=== PATIENT | male | born 1940 | race Caucasian/White ===

== ENCOUNTER 2016-10-25 18:45 | Emergency (ER) | payer OTHER, MEDICARE ==
[~2016-10-25] VITALS: Ht 175.3 cm; Wt 76.0 kg
[~2016-10-25 18:45] MED LIST: ASPI81 PO; COMBAER INH; COZA100T PO; EYECAPS; LASI20TA PO; METO50TA OR; NITR0.4S SL; NORV2.5T11 PO; OMEP20TA PO; SIMV80TA PO; TAB-TAB PO; [UNRECOGNIZED DRUG - CODE] OP
[2016-10-25 18:48] VITALS: BP 149/89; PULSE 86; RESP 28; TEMP 97.4; O2SAT 96
[2016-10-25 20:08] VITALS: BP 175/87
--- NOTE | 2016-10-25 20:12 | PD ---
HPI Chief Complaint: Chest Pain Time Seen by Provider: 19:58 Travel History International Travel<30 days: No Contact w/Intl Traveler<30days: No Traveled to known affect area: No History of Present Illness HPI 76-year-old male complains of chest pain. Patient states the pain started yesterday. Patient states the pain is aching pain localized to left chest. Patient denies any pain radiation. Patient denies palpitation nausea or diaphoresis. Patient denies any coughing congestion fever chills. Patient states that the pain is not associate with exertion. Patient states that the pain started yesterday and has been persistent since then. Patient states that the pain is better today. Patient takes nitroglycerin intermittently without relief of the pain. Patient has history of coronary disease status post cardiac catheter and angioplasty 6 years ago. Patient denies any history of [place]. Patient has history hypertension, dyslipidemia. Patient denies history diabetes. Patient is a nonsmoker. Patient has history of GERD. Patient also has history of chronic low back pain that is not new. Patient denies any recent injury. Patient was taking oxycodone and hydrocodone for back pain in the past. Patient takes aspirin 81 mg daily including today. PFSH Past Medical History Asthma: Yes Cardiac Catheterization: Yes Cardiovascular Problems: Yes High Cholesterol: Yes COPD: Yes Diverticulitis: Yes Hypertension: Yes Respiratory: Yes (COPD/ASTHMA) Past Surgical History Abdominal Surgery: Yes (S/P PERITONITIS) Appendectomy: Yes Social History Alcohol Use: No Tobacco Use: No Substance Use: No Allergies-Medications (Allergen,Severity, Reaction): Coded Allergies: No Known Allergies (Verified , 10/25/16) Reported Meds & Prescriptions Reported Meds & Active Scripts Active Reported [Eyecaps] Nitrostat (Nitroglycerin) 0.4 Mg Sub 0.4 Mg SL DIRECTED Cozaar (Losartan Potassium) 100 Mg Tab 100 Mg PO DAILY Hypromellose 4300CPS (Hypromellose (Bulk)) 4,300 Cps Pow 4,300 Cps OP TIDPRN Lasix (Furosemide) 20 Mg Tab 20 Mg PO DAILY Norvasc (Amlodipine Besylate) 2.5 Mg Tab 2.5 Mg PO DAILY Combivent (Albuterol/Ipratropium) 14.7 Gm Aer 2 Puff INH DIRECTED PRN Multivitamin (Multivitamins) 1 Tab Tab 1 Tab PO DAILY Aspirin 81 Mg Tab 81 Mg PO DAILY Simvastatin 80 Mg Tab 20 Mg PO HS Metoprolol Tartrate 50 Mg Tab 25 Mg OR BID Omeprazole 20 Mg Tab 20 Mg PO BID Review of Systems General / Constitutional: No: Fever Eyes: No: Visual changes HENT: No: Headaches Cardiovascular: Positive: Chest Pain or Discomfort Respiratory: No: Shortness of Breath Gastrointestinal: No: Abdominal Pain Genitourinary: No: Dysuria Musculoskeletal: No: Pain Skin: No Rash Neurologic: No: Weakness Psychiatric: No: Depression Endocrine: No: Polydipsia Hematologic/Lymphatic: No: Easy Bruising Physical Exam Narrative GENERAL: Well-nourished, well-developed patient. SKIN: Focused skin assessment warm/dry. HEAD: Normocephalic. EYES: No scleral icterus. No injection or drainage. NECK: Supple, trachea midline. No JVD or lymphadenopathy. CARDIOVASCULAR: Regular rate and rhythm without murmurs, gallops, or rubs. RESPIRATORY: Breath sounds equal bilaterally. No accessory muscle use. GASTROINTESTINAL: Abdomen soft, non-tender, nondistended. MUSCULOSKELETAL: No cyanosis, or edema. BACK: Nontender without obvious deformity. No CVA tenderness. Neurologic exam normal. Data Data Last Documented VS Vital Signs Date Time Temp Pulse Resp B/P Pulse Ox O2 Delivery O2 Flow Rate FiO2 10/25/16 20:35 67 18 140/88 96 Room Air 10/25/16 18:48 97.4 Orders Electrocardiogram (10/25/16 ) Complete Blood Count With Diff (10/25/16 20:06) Comprehensive Metabolic Panel (10/25/16 20:06) Creatine Kinase (Cpk) (10/25/16 20:06) Troponin I (10/25/16 20:06) Prothrombin Time / Inr (Pt) (10/25/16 20:06) Act Partial Throm Time (Ptt) (10/25/16 20:06) Chest, Single Ap (10/25/16 20:06) Iv Access Insert/Monitor (10/25/16 20:06) Ecg Monitoring (10/25/16 20:06) Oximetry (10/25/16 20:06) Acetamin-Hydrocod 325-5 Mg (Ledbetter 5-325 (10/25/16 20:15) Aspirin Chew (Aspirin Chew) (10/25/16 20:15) Morphine Inj (Morphine Inj) (10/25/16 20:30) Ondansetron Inj (Zofran Inj) (10/25/16 20:30) Morphine Inj (Morphine Inj) (10/25/16 20:45) Labs Laboratory Tests Test 10/25/16 20:25 White Blood Count 10.0 TH/MM3 Red Blood Count 3.88 MIL/MM3 Hemoglobin 11.7 GM/DL Hematocrit 34.4 % Mean Corpuscular Volume 88.6 FL Mean Corpuscular Hemoglobin 30.1 PG Mean Corpuscular Hemoglobin 33.9 % Concent Red Cell Distribution Width 17.3 % Platelet Count 338 TH/MM3 Mean Platelet Volume 9.3 FL Neutrophils (%) (Auto) 60.5 % Lymphocytes (%) (Auto) 23.2 % Monocytes (%) (Auto) 14.8 % Eosinophils (%) (Auto) 1.3 % Basophils (%) (Auto) 0.2 % Neutrophils # (Auto) 6.0 TH/MM3 Lymphocytes # (Auto) 2.3 TH/MM3 Monocytes # (Auto) 1.5 TH/MM3 Eosinophils # (Auto) 0.1 TH/MM3 Basophils # (Auto) 0.0 TH/MM3 CBC Comment AUTO DIFF Differential Comment AUTO DIFF CONFIRMED Platelet Estimate NORMAL Platelet Morphology Comment NORMAL Ovalocytes 1+ Acanthocytes OCC Keratocytes OCC Prothrombin Time 9.9 SEC Prothromb Time International 0.9 RATIO Ratio Activated Partial 24.9 SEC Thromboplast Time Sodium Level 128 MEQ/L Potassium Level 4.1 MEQ/L Chloride Level 93 MEQ/L Carbon Dioxide Level 24.5 MEQ/L Anion Gap 11 MEQ/L Blood Urea Nitrogen 9 MG/DL Creatinine 0.88 MG/DL Estimat Glomerular Filtration 84 ML/MIN Rate Random Glucose 90 MG/DL Calcium Level 8.7 MG/DL Total Bilirubin 0.3 MG/DL Aspartate Amino Transf 25 U/L (AST/SGOT) Alanine Aminotransferase 28 U/L (ALT/SGPT) Alkaline Phosphatase 156 U/L Total Creatine Kinase 54 U/L Troponin I LESS THAN 0.02 NG/ML Total Protein 6.8 GM/DL Albumin 3.5 GM/DL [facility] Medical Decision Making Medical Screen Exam Complete: Yes Emergency Medical Condition: Yes Interpretation(s) 22:23 PM. EKG shows sinus rhythm with bigeminy. Nonspecific ST-T wave change. Last Impressions Chest X-Ray 10/25/162005 Signed Impressions: Service Date/Time: Tuesday, October 25, 2016 20:07 - CONCLUSION: 1. Basilar atelectasis or scarring lungs. No effusion. Nabeel Ponce MD 22:23 PM. CBC within normal limit. Sodium 128. Cardiac enzymes are normal. Differential Diagnosis Differential diagnosis including angina, [place], PE, pneumothorax. Narrative Course 76-year-old male with chest pain. History of CAD status post angioplasty 6 years ago. Patient took aspirin 81 mg by mouth today. Patient complains of chronic low back pain. Lortab 5/325, one tablet by mouth given. Aspirin 81 g by mouth given. Morphine 2 mg IV given. Zofran 4 mg IV given. Repeated morphine 2 mg IV. Patient was offer admission to the chest pain center. Patient refuses admission patient wants to go home. Diagnosis Primary Impression: Chest pain Qualified Code: R07.9 - Chest pain, unspecified type Additional Impression: Back pain Qualified Code: M54.5 - Chronic bilateral low back pain without sciatica Patient Instructions: General Instructions Additional Instructions: Take medications as needed for back pain. 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 Return if increasing chest pain or shortness of breath. Med/Other Pt SpecificInfo: Prescription(s) given Scripts Hydrocodone-Acetaminophen (Ledbetter)5-325 mg Tab1 Tab PO Q6H PRN (PAIN) #20 TAB Ref 0 Prov:Christiano Hernandez MD 10/25/16 Disposition: 01 DISCHARGE HOME Condition: Stable Christiano Hernandez MD Oct 25, 2016 20:12
[2016-10-25] MEDS ORDERED: ASPIRIN 81 MG CHEW TAB CHEW ONE (20:15)
[2016-10-25] MEDS ORDERED: ACETAMINOPHEN/HYDROcodone 325 MG/5 MG TAB PO ONE (20:15)
[2016-10-25 20:29] VITALS: O2SAT 97
[2016-10-25] MEDS ORDERED: ONDANSETRON HCL 4 MG/2 ML VIAL IV PUSH ONE (20:30)
[2016-10-25] MEDS ORDERED: MORPHINE SULFATE 4 MG/ML INJ IV PUSH ONE ×2 (20:30→20:45)
[2016-10-25 20:35] VITALS: BP 140/88; PULSE 67; RESP 18; O2SAT 96
[2016-10-25 21:09] LABS: BASOPHIL % 0.2 % (0.0-2.0); EOSINOPHIL # 0.1 TH/MM3 (0-0.4); EOSINOPHIL % 1.3 % (0.0-4.0); HEMATOCRIT 34.4 % (39.0-51.0); LYMPH % 23.2 % (9.0-44.0); LYMPHOCYTE # 2.3 TH/MM3 (1.0-4.8); MEAN CELL VOLUME 88.6 FL (80.0-100.0); MEAN CORPUSCULAR HEMOGLOBIN 30.1 PG (27.0-34.0); MEAN CORPUSCULAR HGB CONC 33.9 % (32.0-36.0); MONO % 14.8 % (0.0-8.0); NEUT % 60.5 % (16.0-70.0); PLATELET COUNT 338 TH/MM3 (150-450); RED BLOOD COUNT 3.88 MIL/MM3 (4.50-5.90); RED CELL DISTRIBUTION WIDTH 17.3 % (11.6-17.2)
[2016-10-25 21:21] LABS: HEMO FLAGS AUTO DIFF
--- NOTE | 2016-10-25 21:23 | RADRPT ---
EXAM DATE/TIME: 10/25/2016 20:07 [facility] COMPARISON: No previous studies available for comparison. INDICATIONS : Chest pain. MEDICAL HISTORY : None. SURGICAL HISTORY : None. ENCOUNTER: Initial ACUITY: 1 day PAIN SCORE: 0/10 LOCATION: Bilateral chest FINDINGS: A single view of the chest demonstrates linear atelectasis or scarring at the lung bases. No effusion . No pneumothorax. Tortuous aorta. CONCLUSION: 1. Basilar atelectasis or scarring lungs. No effusion. Nabeel Ponce MD on October 25, 2016 at 21:20 Board Certified Radiologist. This report was verified electronically.
[2016-10-25 21:35] LABS: APTT (PATIENT) 24.9 SEC (24.3-30.1); INTERNATIONAL NORMALIZED RATIO 0.9 RATIO; PROTHROMBIN TIME - PATIENT 9.9 SEC (9.8-11.6)
[2016-10-25 21:36] LABS: ANION GAP 11 MEQ/L (5-15); AST (GOT) 25 U/L (15-37); BICARBONATE 24.5 MEQ/L (21.0-32.0); BLOOD UREA NITROGEN 9 MG/DL (7-18); CHLORIDE 93 MEQ/L (98-107); GLOMERULAR FILTRATION RATE 84 ML/MIN (>89); POTASSIUM 4.1 MEQ/L (3.5-5.1); SODIUM (NA) 128 MEQ/L (136-145)
[2016-10-25 21:43] LABS: ALKALINE PHOSPHATASE 156 U/L (45-117); ALT (GPT) 28 U/L (12-78); CREATINE KINASE 54 U/L (39-308); TOTAL BILIRUBIN ADULT 0.3 MG/DL (0.2-1.0)
[2016-10-25 21:54] LABS: ACANTHOCYTES OCC (NORMAL); KERATOCYTES OCC (NORMAL); OVALOCYTES 1+ (NORMAL); PLATELET ESTIMATE SMEAR NORMAL (NORMAL); PLATELET MORPHOLOGY NORMAL (NORMAL); SCAN/DIFF AUTO DIFF CONFIRMED
[2016-10-25] MEDS ORDERED: NORC5TAB PO (22:33)
--- NOTE | 2016-10-25 22:59 | EKG ---
Date Performed: 10/25/2016 Time Performed: 19:05:52 PTAGE: 76 years EKG: Sinus rhythm WITH FIRST DEGREE AV BLOCK WITH FREQUENT VENTRICULAR PREMATURE COMPLEXES\BIGEMINY MODERATE INTRAVENT RICULAR CONDUCTION DELAY ABNORMAL ECG PREVIOUS TRACING : 04/09/2012 20.13 Compared to the previous tracing, Bigeminy is now noted DOCTOR: Balwinder Dixon Interpretating Date/Time 10/25/2016 22:59:23
== END 2016-10-25 23:08 | disposition home or self-care (01) ==
LOC: NEPC 18:45
DX: R07.9 Chest pain, unspecified (principal); M54.5 Low back pain; R94.31 Abnormal electrocardiogram [ECG] [EKG]; I10 Essential (primary) hypertension; E78.5 Hyperlipidemia, unspecified; Z79.82 Long term (current) use of aspirin; Z86.79 Personal history of other diseases of the circulatory system; Z87.19 Personal history of other diseases of the digestive system; Z87.39 Personal history of other diseases of the musculoskeletal system and connective tissue; Z87.09 Personal history of other diseases of the respiratory system
CPT/HCPCS: 71010; 80053; 82550; 84484; 85025; 85610; 85730; 93005; 96374; 96375; 99285; J2270; J2405

== ENCOUNTER 2016-10-31 00:07 | Emergency (ER) | payer MEDICARE, OTHER ==
[~2016-10-31] VITALS: Ht 177.8 cm; Wt 75.0 kg
[~2016-10-31 00:07] MED LIST changes: +NORC5TAB PO
[2016-10-31 00:10] VITALS: BP 139/75; PULSE 74; RESP 22; TEMP 97.9; O2SAT 97
[2016-10-31] MEDS ORDERED: MORPHINE SULFATE 4 MG/ML INJ IV PUSH ONE ×2 (00:45→02:00)
[2016-10-31] MEDS ORDERED: MELO-1 PO (01:03)
[2016-10-31] MEDS ORDERED: POLY99.0 EACH EYE (01:03)
[2016-10-31] MEDS ORDERED: IPRASOL INH (01:03)
[2016-10-31] MEDS ORDERED: OMEP20TA PO (01:03)
[2016-10-31] MEDS ORDERED: AMLO2.5T PO (01:03)
[2016-10-31] MEDS ORDERED: TRAM50TA PO (01:03)
[2016-10-31] MEDS ORDERED: LOSA100T PO (01:03)
--- NOTE | 2016-10-31 01:25 | RADRPT ---
EXAM DATE/TIME: 10/31/2016 01:02 [facility] COMPARISON: No previous studies available for comparison. INDICATIONS : Fall. Low back pain. MEDICAL HISTORY : None. SURGICAL HISTORY : None. ENCOUNTER: Initial ACUITY: 1 day PAIN SCORE: 8/10 LOCATION: Bilateral Paraspinal FINDINGS: Two view examination was performed. There is evidence of chronic wedge compression of T11, T12 and L1 . The L2-L5 lumbar vertebral bodies are intact. No spondylolisthesis. There is osteopenia and degener ative changes. Atherosclerotic changes are seen in the aorta. No significant spondylolisthesis.. CONCLUSION: 1. Chronic appearing wedge compression of T11, T12 and L1. 2. Osteopenia and degenerative changes of the lumbar spine. Marlo Chowdary MD on October 31, 2016 at 1:22 Board Certified Radiologist. This report was verified electronically.
--- NOTE | 2016-10-31 01:27 | RADRPT ---
EXAM DATE/TIME: 10/31/2016 01:07 [facility] COMPARISON: No previous studies available for comparison. INDICATIONS : Fall. Left elbow pain. MEDICAL HISTORY : None. SURGICAL HISTORY : None. ENCOUNTER: Initial ACUITY: 1 day PAIN SCORE: 5/10 LOCATION: Left upper extremity FINDINGS: Multiple view examination of the left elbow demonstrates no soft tissue swelling, joint effusion, or fracture. The osseous structures are in normal alignment. Bony mineralization is normal. There is a small amount of subcutaneous emphysema in the soft tissues at the elbow. CONCLUSION: No acute bony fracture or joint dislocation. Mild soft tissue injury at the elbow. Marlo Chowdary MD on October 31, 2016 at 1:24 Board Certified Radiologist. This report was verified electronically.
--- NOTE | 2016-10-31 01:31 | PD ---
HPI Chief Complaint: Fall Time Seen by Provider: 00:28 Travel History International Travel<30 days: No Contact w/Intl Traveler<30days: No Traveled to known affect area: No History of Present Illness HPI 68-year-old male arrives to the ER by EMS. He was walking in his bathroom and fell. He landed on the left elbow. He was unable to get up. He did not lose consciousness. He did not have head trauma. His legs were weak and for that reason he fell. He has had a few similar falls previously. His main complaint is constant severe back pain. He asks if he could have a shot like he did last time for the same pain. He has chronic back pain. PFSH Past Medical History Asthma: Yes Cardiac Catheterization: Yes Cardiovascular Problems: Yes High Cholesterol: Yes COPD: Yes Diverticulitis: Yes Hypertension: Yes Respiratory: Yes (COPD/ASTHMA) Influenza Vaccination: No Past Surgical History Abdominal Surgery: Yes (S/P PERITONITIS) Appendectomy: Yes Family History Family Myocardial Infarction: Yes (BROTHER AND FATHER) Social History Alcohol Use: No Tobacco Use: No Substance Use: No Allergies-Medications (Allergen,Severity, Reaction): Coded Allergies: No Known Allergies (Verified , 10/31/16) Reported Meds & Prescriptions Reported Meds & Active Scripts Active [place] (Hydrocodone-Acetaminophen) 5-325 mg Tab 1 Tab PO Q6H PRN Reported Tramadol (Tramadol HCl) 50 Mg Tab 50 Mg PO Q6H PRN Omeprazole 20 Mg Tab 20 Mg PO BID Meloxicam 15 Mg Tab 15 Mg PO DAILY Losartan (Losartan Potassium) 100 Mg Tab 100 Mg PO DAILY Artificial Tears Opth Drops (Polyvinyl Alcohol) 1.4% Soln 1-2 Drop EACH EYE QID Amlodipine (Amlodipine Besylate) 2.5 Mg Tab 2.5 Mg PO DAILY Duoneb (Ipratropium-Albuterol Neb) 0.5-2.5 Mg/3 Ml Neb 1 Nebule INH Q6HR NEB [Eyecaps] Review of Systems Except as stated in HPI: all other systems reviewed are Neg Physical Exam Narrative GENERAL: 76-year-old male pleasant well-nourished well-developed SKIN: Focused skin assessment warm/dry. HEAD: Atraumatic. Normocephalic. EYES: Pupils equal and round. No scleral icterus. No injection or drainage. ENT: No nasal bleeding or discharge. Mucous membranes pink and moist. NECK: Trachea midline. No JVD. CARDIOVASCULAR: Regular rate and rhythm. No murmur appreciated. RESPIRATORY: No accessory muscle use. Clear to auscultation. Breath sounds equal bilaterally. GASTROINTESTINAL: Abdomen soft, non-tender, nondistended. Hepatic and splenic margins not palpable. MUSCULOSKELETAL: No obvious deformities. No clubbing. No cyanosis. No edema. Minimal ecchymosis about the left elbow. Without significant tenderness. Minimal tenderness about the region of the upper lumbar spine. NEUROLOGICAL: Awake and alert. No obvious cranial nerve deficits. Motor grossly within normal limits. Normal speech. PSYCHIATRIC: Appropriate mood and affect; insight and judgment normal. Data Data Last Documented VS Vital Signs Date Time Temp Pulse Resp B/P Pulse Ox O2 Delivery O2 Flow Rate FiO2 10/31/16 00:10 97.9 74 22 139/75 97 Vital signs reviewed Orders Spine, Lumbar - Ltd (Ap & Lat) (10/31/16 ) Iv Access Insert/Monitor (10/31/16 00:34) Ecg Monitoring (10/31/16 00:34) Morphine Inj (Morphine Inj) (10/31/16 00:45) Elbow, Complete (4 Vws) (10/31/16 ) [facility] Medical Decision Making Medical Screen Exam Complete: Yes Emergency Medical Condition: Yes Medical Record Reviewed: Yes Differential Diagnosis Lumbar vertebral body fracture, elbow fracture, acute on chronic pain Narrative Course Patient's pain has been controlled. He is ready for discharge home. L elbow dressing applied. Last 24 hours Impressions Lumbar Spine X-Ray 10/31/16 0000 Signed Impressions: Service Date/Time: Monday, October 31, 2016 01:02 - CONCLUSION: 1. Chronic appearing wedge compression of T11, T12 and L1. 2. Osteopenia and degenerative changes of the lumbar spine. Marlo Chowdary MD Elbow X-Ray 10/31/16 0000 Signed Impressions: Service Date/Time: Monday, October 31, 2016 01:07 - CONCLUSION: No acute bony fracture or joint dislocation. Mild soft tissue injury at the elbow. Marlo Chowdary MD Diagnosis Primary Impression: Back pain Qualified Code: M54.5 - Chronic midline low back pain without sciatica Additional Impressions: Fall Qualified Code: W19.XXXS - Fall, sequela Elbow contusion Qualified Code: S50.02XA - Contusion of left elbow, initial encounter Referrals: Primary Care Physician 2 days Additional Instructions: You have a choice when it comes to health care, and we are glad that you chose [facility]. Hopefully, we have met your expectations on today's visit. You are welcome to return to [facility] at any time, as we are committed to meeting the health care needs of our community. Med/Other Pt SpecificInfo: No Change to Meds Disposition: 01 DISCHARGE HOME Condition: David Brown MD Oct 31, 2016 01:31
[2016-10-31 02:01] VITALS: BP 111/67; PULSE 72; RESP 16; O2SAT 97
[2016-10-31 02:42] VITALS: BP 122/81
== END 2016-10-31 03:12 | disposition home or self-care (01) ==
LOC: NEPE 00:07
DX: M54.5 Low back pain (principal); S50.02XA Contusion of left elbow, initial encounter; M62.81 Muscle weakness (generalized); G89.29 Other chronic pain; I10 Essential (primary) hypertension; E78.00 Pure hypercholesterolemia, unspecified; W18.39XA Other fall on same level, initial encounter; Y92.002 Bathroom of unspecified non-institutional (private) residence as the place of occurrence of the external cause; Z91.81 History of falling; Z87.09 Personal history of other diseases of the respiratory system; Z86.79 Personal history of other diseases of the circulatory system; Z87.19 Personal history of other diseases of the digestive system
CPT/HCPCS: 72100; 73080; 96374; 96376; 99284; J2270